=== PATIENT | male | born 1980 | race Caucasian/White ===

== ENCOUNTER 2021-10-18 09:37 | Outpatient (RCR) | payer OTHER, SELFPAY | END 2021-10-30 23:59 | disposition home or self-care (01) | LOC: MPT 09:37 | PROVIDERS: Family Provider Family Medicine; PCP Family Medicine; Referring Provider Registered Nurse; Visit Provider Registered Nurse | DX: M25.512 Pain in left shoulder (principal); M62.838 Other muscle spasm; V89.2XXD Person injured in unspecified motor-vehicle accident, traffic, subsequent encounter | CPT/HCPCS: 97032; 97110; 97161 ==

== ENCOUNTER 2021-10-31 06:00 | Outpatient (RCR) | payer OTHER, SELFPAY | END 2021-11-30 23:59 | disposition home or self-care (01) | LOC: MPT 06:00 | PROVIDERS: PCP Family Medicine; Referring Provider Registered Nurse; Visit Provider Registered Nurse | DX: M25.512 Pain in left shoulder (principal); M62.838 Other muscle spasm | CPT/HCPCS: 97032; 97110 ==

== ENCOUNTER 2021-12-01 06:00 | Outpatient (RCR) | payer OTHER, SELFPAY | END 2021-12-30 23:59 | disposition home or self-care (01) | LOC: MPT 06:00 | PROVIDERS: PCP Family Medicine; Referring Provider Registered Nurse; Visit Provider Registered Nurse | DX: M25.512 Pain in left shoulder (principal); M62.838 Other muscle spasm | CPT/HCPCS: 97032; 97110; 97140; G0283 ==

== ENCOUNTER → 2022-01-03 10:24 | Outpatient (BNVA) | payer OTHER, SELFPAY | PROVIDERS: PCP Family Medicine; Referring Provider Registered Nurse; Visit Provider Orthopaedic Surgery | DX: S59.909A Unspecified injury of unspecified elbow, initial encounter; M25.512 Pain in left shoulder; V89.2XXA Person injured in unspecified motor-vehicle accident, traffic, initial encounter | CPT/HCPCS: 73030; 73080 ==